=== PATIENT | male | born 1990 | race Caucasian/White ===

== ENCOUNTER 2020-02-11 13:41 | Emergency (ER) | payer MEDICAID ==
[~2020-02-11] VITALS: Ht 185.4 cm; Wt 71.2 kg
--- NOTE | 2020-02-11 15:25 | NUR ---
PATIENT TO ROOM FROM LOBBY
--- NOTE | 2020-02-11 15:37 | NUR ---
PATIENT IN ULTRASOUND
[2020-02-11 15:44] LABS: MICROSCOPIC INDICATED
[2020-02-11 16:03] LABS: BASOPHILS # (AUTO) 0.04 x10^3/uL (0-0.1); BASOPHILS % (AUTO) 0 % (0-1); EOSINOPHILS # (AUTO) 0.25 x10^3/uL (0-0.4); EOSINOPHILS % (AUTO) 3 % (1-7); LYMPHOCYTES # (AUTO) 2.11 x10^3/uL (1-3.4); LYMPHOCYTES % (AUTO) 21 % (22-44); MD NO; MEAN CORPUSCULAR HEMOGLOBIN 30.1 pg (27.5-34.5); MEAN CORPUSCULAR HGB CONC 33.3 g/dL (33.2-36.2); MEAN CORPUSCULAR VOLUME 90.4 fL (81-97); MEAN PLATELET VOLUME 7.3 fL (7.4-10.4); MONOCYTES # (AUTO) 0.76 x10^3/uL (0.2-0.8); MONOCYTES % (AUTO) 8 % (2-9); NEUTROPHILS # (AUTO) 6.75 x10^3/uL (1.8-6.8); NEUTROPHILS % (AUTO) 68 % (42-75); PLATELET COUNT 373 x10^3/uL (130-400); RED BLOOD COUNT 4.96 x10^6/uL (4.38-5.82); RED CELL DISTRIBUTION WIDTH 12.8 % (9.4-14.8)
--- NOTE | 2020-02-11 16:06 | NUR ---
THIS IS A 29 YO MALE COMING IN FOR TESTICULAR SWELLING X3 DAYS, DOES NOT RECALL ANY TRAUMA. DENIES ANY DISCHARGE OR HEMATURIA, DENIES DYSURIA. C/O INTERMITTENT LOWER QUADRANT ABD PAIN AT WORST RATED 4/10. SPO2 AND BP MONITORING IN PLACE, CALL LIGHT IN REACH. AWAITING RESULTS
[2020-02-11 16:07] VITALS: BP 112/64
[2020-02-11 16:14] LABS: ANION GAP 8 mmol/L (5-15); CALCIUM 8.8 mg/dL (8.5-10.1); CHLORIDE 102 mmol/L (98-107); CREATININE 0.94 mg/dL (0.7-1.3)
[2020-02-11] MEDS ORDERED: AZITHROMYCIN 500 MG TABLET PO ONE (17:00)
[2020-02-11] MEDS ORDERED: CEFTRIAXONE 250 MG ONE (17:00)
[2020-02-11] MEDS ORDERED: IBUPROFEN 600 MG TABLET ONE (17:00)
[2020-02-11] MEDS ORDERED: CEFTRIAXONE 250 MG IM ONE (17:00)
[2020-02-11] MEDS ORDERED: AZITHROMYCIN 250 MG TABLET ONE (17:00)
[2020-02-11] MEDS ORDERED: IBUPROFEN 600 MG TABLET PO ONE (17:00)
[2020-02-11] MEDS ORDERED: LIDOCAINE-MPF 1%, 2ML ONE (17:00)
--- NOTE | 2020-02-11 17:12 | NUR ---
Patient medicated per emar, tolerated well. Patient given discharge instructions and they have confirmed that they understand the instructions. Patient ambulatory with steady gait.
== END 2020-02-11 17:16 | disposition home or self-care (01) ==
LOC: ED 16:56
DX: N45.1 Epididymitis (principal); I86.1 Scrotal varices; F17.200 Nicotine dependence, unspecified, uncomplicated
CPT/HCPCS: 36415; 76870; 80048; 81001; 85025; 87086; 87491; 87591; 96372; 99284; J0696; 87147